=== PATIENT | female | born 1995 | race Two or more races ===

== ENCOUNTER 2020-11-03 11:27 | Inpatient (IN) | payer OTHER ==
[~2020-11-03] VITALS: Ht 160 cm; Wt 1.4 kg
[2020-11-03] MEDS ORDERED: PRENATAL CAPLE1 EAC1 PO (14:07)
== END 2020-11-07 13:05 | disposition home or self-care (01) | DRG 788 ==
LOC: LDR 11:27 → O/R 11:27 → OB/GYN 11-04 15:09 → LDR 11-04 20:41 → OB/GYN 11-05 09:28
PROVIDERS: ADMIT Obstetrics & Gynecology; ATTEND Obstetrics & Gynecology
PROC: 10D00Z1 Extraction of Products of Conception, Low, Open Approach (ICD-10-PCS; principal; 2020-11-03)
PROC: 4A1HXFZ Monitoring of Products of Conception, Cardiac Rhythm, External Approach (ICD-10-PCS; 2020-11-03)
DX: O14.24 HELLP syndrome, complicating childbirth (principal); O62.8 Other abnormalities of forces of labor; Z3A.31 31 weeks gestation of pregnancy; Z37.0 Single live birth

== ENCOUNTER 2020-11-12 08:00 | Outpatient (CLI) | payer OTHER ==
[~2020-11-12 08:00] MED LIST: PRENATAL CAPLE1 EAC1 PO
== END 2020-11-12 08:30 | disposition home or self-care (01) ==
LOC: PPH VACUNA 08:00
PROVIDERS: ATTEND Emergency Medicine Pediatric Emergency Medicine
DX: Z23 Encounter for immunization (principal)